=== PATIENT | male | born 1995 | race Two or more races ===

== ENCOUNTER 2025-05-07 23:46 | Emergency (ER) | payer MEDICAID, SELFPAY ==
[2025-05-07 23:48] VITALS: BMI 26.4
[2025-05-08 00:49] VITALS: BP 126/80; PULSE 88; RESP 20; TEMP 37.1; O2SAT 99
--- NOTE | 2025-05-08 01:04 | PD.EDRME ---
Rapid Medical Screening Exam [facility] Arrival date/time: 05/07/25 23:46 30M with history of marijuana use presents to ED with several days of epigastric pain and N/V. Chief Complaint: Abdominal Pain Vital signs: Vital Signs Temperature 98.7 F 05/08/25 00:49 Pulse Rate 88 05/08/25 00:49 Respiratory Rate 20 05/08/25 00:49 Blood Pressure 126/80 05/08/25 00:49 Pulse Oximetry (%) 99 05/08/25 00:49 Oxygen Delivery Method Room Air 05/08/25 00:49 Exam: Epigastric tenderness Clinical Impression: Hyperemesis syndrome vs biliary disease vs pancreatitis vs gastritis vs gastroenteritis
[2025-05-08 01:23] LABS: Basophils # (Auto) 0.1 Thou/mm3 (0.0-0.2); Basophils % (Auto) 1 % (0-2.5); Eosinophils # (Auto) 0.1 Thou/mm3 (0.0-0.5); Eosinophils % (Auto) 2 % (0-10); Hematocrit 31.1 % (41.0-53.0); Hemoglobin 9.1 g/dL (13.5-16.0); Immature Granulocytes Auto 0.01 Thou/mm3 (0.00-0.00); Lymphocytes # (Auto) 2.2 Thou/mm3 (1.0-4.8); Lymphocytes % (Auto) 33 % (10-50); Mean Corpuscular HGB Conc 29.3 g/dl (31.0-37.0); Mean Corpuscular Hemoglobin 18.5 pg (25.0-35.0); Mean Corpuscular Volume 63 fL (80-100); Monocytes # (Auto) 0.7 Thou/mm3 (0.0-0.8); Monocytes % (Auto) 11 % (0-12); Neutrophils # (Auto) 3.5 Thou/mm3 (1.8-7.7); Neutrophils % (Auto) 53 % (37-80); Nucleated Red Blood Cell # 0.00 Thou/mm3 (0.00-0.00); Nucleated Red Blood Cell % 0 /100 WBC (0); Platelet Count 405 Thou/mm3 (140-440); RDW Standard Deviation 41.2 fL (35.1-43.9); Red Blood Count 4.91 Miln/mm3 (4.50-5.90); White Blood Count 6.6 Thou/mm3 (3.8-10.6)
[2025-05-08] MEDS: METOCLOPRAMIDE INJ 5 MG/ML VIAL 2 ML 10 MG IM (01:40)
[2025-05-08 01:49] LABS: Alanine Aminotransferase 9 U/L (10-49); Albumin, Serum 4.7 gm/dL (3.5-5.0); Albumin/Globulin Ratio 2.0 (1.2-2.2); Alkaline Phosphatase 73 U/L (46-116); Anion Gap 11 (7-16); Aspartate Amino Transferase 18 U/L (0-34); BUN/Creatinine Ratio 11 Ratio (12-20); Bilirubin,Total 0.4 mg/dL (0.3-1.2); Blood Urea Nitrogen 11 mg/dL (9-23); Calcium 9.6 mg/dL (8.3-10.6); Calcium (Corrected) 9.6 mg/dL (8.5-10.1); Carbon Dioxide 27.0 mMol/L (20.0-31.0); Chloride 103 mMol/L (98-107); Creatinine (Component) 1.0 mg/dL (0.6-1.3); Estimated Creatinine Clearance 118.6 mL/min (>60); Globulin 2.4 gm/dL (2.3-3.5); Glucose 126 mg/dL (74-106); Lipase 36 U/L (12-53); Osmolality,Calculated 282 (275-295); Potassium 3.4 mMol/L (3.4-5.1); Sodium 141 mMol/L (136-145); Total Protein 7.1 gm/dL (5.7-8.2); eGFR > 60 See Note
[2025-05-08 01:53] VITALS: BP 135/72; PULSE 67; RESP 18; O2SAT 100
--- NOTE | 2025-05-08 02:06 | EDNOTE_ITS ---
ED Abdominal Pain RME/HPI General Chief Complaint: Abdominal Pain Stated complaint: ABD PAIN Time seen by provider: 05/08/25 02:07 Arrival date/time: 05/07/25 23:46 RME / HPI RME / HPI narrative: 05/07/25 23:46 30M with history of marijuana use presents to ED with several days of epigastric pain and N/V. Dr. German?s Main ED Evaluation: 30yo male presents to the ED for complaints of epigastric pain, nausea, and vomiting for the last 2-3 days. No radiation or migration. Patient reports associated heartburn. Does admit to smoking marijuana. Patient denies any fever, chills, or any other associated symptoms. Denies alcohol use. Related Data Previous Rx's ?Medication ?Instructions ?Recorded dicyclomine 20 mg tablet 20 mg PO QID PRN abdominal p ain 05/08/25 #20 tabs metoclopramide HCl 10 mg tablet 10 mg PO Q6H PRN nause a and 05/08/25 (Reglan) vomiting #20 tabs Allergies Allergy/AdvReac Type Severity Reaction Status Date / Time Penicillins Allergy Verified 05/07/25 23:48 Review of Systems Review of Systems Systems Reviewed: All systems reviewed, normal except as documented Past Medical History Past Medical History CARDIAC: Negative Congestive Heart Failure RESPIRATORY: Negative Chronic Obstructive Pulmonary Disease (COPD) GENITOURINARY: Negative Renal Disease ENDOCRINE: Negative Diabetes Mellitus Type 1 or Diabetes Mellitus Type 2 Social History SMOKING STATUS: Never smoker ED Exam Narrative Physical exam: Generally patient is alert in no obvious distress, heart regular rate and rhythm, lungs clear to auscultation equal bilaterally, abdomen soft bowel sounds present nondistended epigastric abdominal tenderness without rebound, skin is warm pale and dry, neurologic exam Chani Coma Scale 15 Course Quality Measures none Orders Category Date Time Status CBC Stat Lab 05/08/25 01:10 Results CMP [Comprehensive Metabolic Panel] Stat Lab 05/08/25 01:10 Completed Drug Screen,Urine Stat Lab 05/08/25 01:04 Ordered Lipase Stat Lab 05/08/25 01:10 Completed Path Review Blood Smear Stat Lab 05/08/25 01:10 Results Urinalysis, C/S if Indicated Stat Lab 05/08/25 01:04 Ordered Dicyclomine Inj [Bentyl Inj] Med 05/08/25 02:11 Once 20 mg IM X1 ONE Metoclopramide Inj [Reglan Inj] Med 05/08/25 01:03 Discontinued 10 mg IM X1 ONE Metoclopramide Inj [Reglan Inj] Med 05/08/25 02:11 Discontinued 10 mg IVP X1 ONE Vital Signs Vital signs: Vital Signs Temperature 98.7 F 05/08/25 00:49 Pulse Rate 88 05/08/25 00:49 Respiratory Rate 20 05/08/25 00:49 Blood Pressure 126/80 05/08/25 00:49 Pulse Oximetry (%) 99 05/08/25 00:49 Oxygen Delivery Method Room Air 05/08/25 00:49 Abdominal Pain MDM MDM Narrative MDM Narrative:: Scribe Attestation: 05/08/25 - Allison Chaves am scribing for and in the presence of Dr. German. I interpreted all labs. Essentially they were all unremarkable. Renal function is normal. LFTs were normal. Lipase is not elevated. There is no leukocytosis. Patient had already received Reglan 10 mg IV. He will receive Bentyl 20 mg IM. Discharged on Reglan and Bentyl to be taken as prescribed. A void marijuana. Follow-up with his doctor. Return to ER as needed or if condition worsens. He is also to avoid hot spicy greasy fatty foods. Patient data External records reviewed:: [facility] previous records (Per chart review, patient has no previous ED visits or admissions to this facility.) Clinical information provided by:: patient Social determinants that could affect healthcare access:: substance use (marijuana use) Patient has the following chronic illnesses:: none How is presenting disease/condition affected by chronic disease/condition?: no chronic disease Evaluation data The following diagnostics were reviewed and interpreted by me:: lab results Lab and/or radiology exams considered but not ordered:: none Interpretation Summary: See MDM Medications / Prescriptions Medications or Prescriptions considered but not ordered:: none Medication administrations:: Medication Administration History Dicyclomine HCl (Dicyclomine Inj 10 Mg/Ml 2ml Vial) 20 mg IM X1 ONE Stop: 05/08/25 02:12 Discontinued Medications Metoclopramide HCl (Metoclopramide Inj 5 Mg/Ml Vial 2 Ml) 10 mg IM X1 ONE; Protocol Stop: 05/08/25 01:04 Last Admin: 05/08/25 01:40 Dose: 10 mg Documented By: JORDEN Metoclopramide HCl (Metoclopramide Inj 5 Mg/Ml Vial 2 Ml) 10 mg IVP X1 ONE; Protocol Stop: 05/08/25 02:12 see above Consultations Consultation(s) initiated? (list below): No Diagnosis Differential diagnosis abdominal pain: other (See MDM) Most likely diagnosis given after review of the tests above:: see clinical impression below Admission Indicated Admission indicated?: not indicated Admission Request Was there a request for admission?: No Disposition Plan Disposition Plan: Discharge Discharge Attestation Discharge Attestation: The patient and all family members were given an opportunity to ask questions and understood the discharge instructions. Discharge instructions specifically effects, indications for sooner follow up or return to the emergency department, and the expected course of current diagnosis. Patient condition: Stable Discharge Plan Plan Patient Disposition: HOME (Self Care) Prescriptions/Referrals Prescriptions/Med Rec: New metoclopramide HCl [Reglan] 10 mg tablet 10 mg PO Q6H PRN (Reason: nausea and vomiting) Qty: 20 0RF dicyclomine 20 mg tablet 20 mg PO QID PRN (Reason: abdominal pain) Qty: 20 0RF Problem List Clinical Impression: Abdominal pain Patient/Caregiver Discharge Instructions Education Materials: Abdominal Pain Additional Instructions: Medication as prescribed. Stop marijuana. Avoid hot spicy greasy fatty foods. Follow-up with your doctor. Return to ER as needed or if condition worsens. Print Language: Portuguese Stand Alone Forms: Bety Award Info., Patient Portal Info Letter
[2025-05-08 02:33] LABS: Path Review Blood Smear Sent to Pathologist
[2025-05-08] MEDS: DICYCLOMINE INJ 10 MG/ML 2ML VIAL 20 MG IM (02:39)
[2025-05-08 02:58] VITALS: BP 141/74; PULSE 66; RESP 16; O2SAT 100
== END 2025-05-08 03:00 | disposition home or self-care (01) ==
LOC: SERX 05-08 03:28
PROVIDERS: Physician Assistant; Emergency Provider Emergency Medicine
DX: R10.9 Unspecified abdominal pain (principal); F12.90 Cannabis use, unspecified, uncomplicated
CPT/HCPCS: 36415; 80053; 80307; 81001; 83690; 85025; 96372; 99283; J0500; J2765